=== PATIENT | female | born 1985 | race American Indian/Alaskan Native ===

== ENCOUNTER 2022-02-23 01:26 | Emergency (ER) | payer SELFPAY ==
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
[2022-02-23 04:46] VITALS: BP 154/118
== END 2022-02-23 05:01 ==
LOC: ED 01:26
DX: M25.551 Pain in right hip (principal); R03.0 Elevated blood-pressure reading, without diagnosis of hypertension; V89.2XXA Person injured in unspecified motor-vehicle accident, traffic, initial encounter; Y93.89 Activity, other specified; Y92.89 Other specified places as the place of occurrence of the external cause; Y99.8 Other external cause status
CPT/HCPCS: 70450; 71045; 72125; 99284